=== PATIENT | female | born 1970 | race Hispanic/Latino ===

== ENCOUNTER → 2018-05-13 | Day surgery (SDC) | payer BC ==
[~2018-05-13] MED LIST: ACETAMINOPHEN 1000 MG/100 ML IV ONE; BUPIVACAINE HCL 0.5% INJ 30 ML VIAL INJ ONE; CEFAZOLIN SOD 1 GM/NS 50ML 100 ML IV ONE; DEXAMETHASONE SOD PHOS INJ 4 MG/ML VIAL ONE; FENTANYL CITRATE/PF 100MCG/2 ML INJ ONE; HYDROCHLOROTHIA25 MG PO; KETOROLAC TROMETHAMINE 30 MG/ML VIAL ONE; LIDOCAINE HCL 2% LOCAL INJ 5 ML SDV VIAL INJ ONE; MIDAZOLAM HCL 2 MG/2 ML VIAL ONE; NAPROXEN250 MG PO; ONDANSETRON HCL INJ 2MG/ML 2ML 2 MG/ML VIAL ONE; PANTOPRAZOLE SO40 MG PO; PROPOFOL IV EMULSION 10 MG/ML 20 ML VIAL ONE; PROPRANOLOL HCL40 MG PO; SEVOFLURANE INHAL SOLN 250 ML PEN BTL ONE; VITAMIN B-121000 MCG PO
--- OUTSIDE RECORDS SUMMARY | 2018-05-13 05:28 | XMS REPORT | Continuity of Care Document ---
Author Author [facility] Organization [facility] Address Unknown Phone Unavailable Care Team Providers Care Bead Forming Machine Operator Name Role Phone MD Eusebio, Jeff PP Unavailable Insurance Providers Payer name Policy type / Coverage type Policy ID Covered libertarian ID [place] Encounters Encounter Performer Location Date Lab Report Jeff Kaplan MD [facility] Apr 11, 2013 Problems Problem Effective Dates Problem Status SCREENING FOR LIPOID DISORDERS Apr 11, 2013 Active SCREENING, DIABETES MELLITUS Apr 11, 2013 Active SCREENING, IRON DEFICIENCY ANEMIA Apr 11, 2013 Active [facility] Apr 11, 2013 Active OTHER SCREENING MAMMOGRAM Apr 11, 2013 Active SCREENING FOR MALIGNANT NEOPLASM OF THE CERVIX Apr 11, 2013 Active SCREENING FOR THYROID DISORDER Apr 11, 2013 Active Procedures Date Description Comments Apr 11, 2013 smoking status never smoker Mar 10, 2009 vaginal Pap smear results Normal Vital Signs Date Description Test Result Apr 11, 2013 height E&M - 8302-2 HEIGHT 65 in Apr 11, 2013 weight E&M - 3141-9 WEIGHT 165.31 lb Apr 11, 2013 temperature E&M TEMPERATURE 97.8 deg f Apr 11, 2013 respiratory rate E&M - 9279-1 RESP RATE 18 /min Apr 11, 2013 blood pressure, systolic - 8480-6 BP SYSTOLIC 121 mm Hg Apr 11, 2013 blood pressure, diastolic - 8462-4 BP DIASTOLIC 74 mm Hg Apr 11, 2013 pulse rate E&M - 8867-4 PULSE RATE 69 /min Results Date Description Test Name Value Reference Interpretation Status Apr 11, 2013 hemoglobin, blood HGB 14.5 g/dL 12.0-16.0 Apr 11, 2013 hematocrit, blood HCT 43.9 % 36.0-48.0 Apr 11, 2013 platelet count PLATELETS 163 K/CMM /mm3 133-450 Apr 11, 2013 hemoglobin A1C, blood, as % of total hemoglobin HGBA1C 5.2 % <=5.6 Apr 11, 2013 cholesterol, serum CHOLESTEROL 185 mg/dl <=199 Apr 11, 2013 triglyceride, serum, fasting TRIGLYCERIDE 90 mg/dl <=149 Apr 11, 2013 HDL cholesterol, serum HDL 49 mg/dl >=61 Low Apr 11, 2013 LDL cholesterol, serum LDL 118 mg/dl <=99 High Apr 11, 2013 sodium, serum SODIUM 142 MEQ/L mmol/L 135-145 Apr 11, 2013 potassium, serum POTASSIUM 4.5 MEQ/L mmol/L 3.5-5.1 Apr 11, 2013 creatinine, serum CREATININE 0.9 mg/dL 0.5-1.4 Apr 11, 2013 urea nitrogen, blood BUN 16 mg/dL 7-22 Apr 11, 2013 urea nitrogen/creatinine ratio, serum BUN/CREAT 18 null 6-25 Apr 11, 2013 albumin, serum ALBUMIN 4.2 g/dL 3.5-5.0 Apr 11, 2013 calcium, serum CALCIUM 9.1 mg/dL 8.5-10.5 Apr 11, 2013 alanine aminotransferase (SGPT), serum SGPT (ALT) 22 U/L 0-65 Apr 11, 2013 aspartate aminotransferase (SGOT), serum SGOT (AST) 12 U/L 0-37 Apr 11, 2013 alkaline phosphatase, serum ALK PHOS 64 U/L 39-136 Apr 11, 2013 thyroid stimulating hormone, serum TSH 1.180 uIU/mL 0.360-3.740 Mar 10, 2009 vaginal Pap smear results PAP SMEAR Normal null
--- OUTSIDE RECORDS SUMMARY | 2018-05-13 05:28 | XMS REPORT | Continuity of Care Document ---
Author Author [facility] Organization [facility] Address Unknown Phone Unavailable Care Team Providers Care Licensed Psychologist Name Role Phone MD Ankit, Valerie PP Unavailable Insurance Providers Payer name Policy type / Coverage type Policy ID Covered green party ID [place] Encounters Encounter Performer Location Date Office Visit Valerie Pham MD [facility] May 07, 2013 Problems Problem Effective Dates Problem Status SCREENING FOR LIPOID DISORDERS Apr 11, 2013 Active SCREENING, DIABETES MELLITUS Apr 11, 2013 Active SCREENING, IRON DEFICIENCY ANEMIA Apr 11, 2013 Active [facility] Apr 11, 2013 Active OTHER SCREENING MAMMOGRAM Apr 11, 2013 Active SCREENING FOR MALIGNANT NEOPLASM OF THE CERVIX Apr 11, 2013 Active SCREENING FOR THYROID DISORDER Apr 11, 2013 Active SINUSITIS, ACUTE Apr 26, 2013 Active CARPAL TUNNEL SYNDROME, RIGHT May 07, 2013 Active Procedures Date Description Comments Apr 11, 2013 smoking status never smoker Mar 10, 2009 vaginal Pap smear results Normal Apr 26, 2013 mammogram Completed at [facility] Medications Medication Instructions Start Date Status FLONASE 50 MCG/ACT SUSP 2 sprays per nostril once daily Apr 26, 2013 Inactive NAPROXEN 500 MG TABS Take 1 tab PO BId prn pain Apr 26, 2013 Inactive MUCINEX DM MAXIMUM STRENGTH 60-1200 MG [id number] Take 1 tab PO BID prn Apr 26, 2013 Inactive TRAMADOL HCL 50 MG TABS 1-2 tab by mouth every 6 hours as needed for pain May 07, 2013 Active IBUPROFEN 800 MG TABS 1 tab every 8 hours as needed for pain May 07, 2013 Active Vital Signs Date Description Test Result Apr [...] E&M - 8867-4 PULSE RATE 69 /min Apr 26, 2013 weight E&M - 3141-9 WEIGHT 164 lb Apr 26, 2013 temperature E&M TEMPERATURE 98.3 deg f Apr 26, 2013 respiratory rate E&M - 9279-1 RESP RATE 18 /min Apr 26, 2013 pulse rate E&M - 8867-4 PULSE RATE 83 /min Apr 26, 2013 blood pressure, systolic - 8480-6 BP SYSTOLIC 128 mm Hg Apr 26, 2013 blood pressure, diastolic - 8462-4 BP DIASTOLIC 70 mm Hg May 07, 2013 weight E&M - 3141-9 WEIGHT 167 lb May 07, 2013 temperature E&M TEMPERATURE 98.1 deg f May 07, 2013 respiratory rate E&M - 9279-1 RESP RATE 16 /min May 07, 2013 pulse rate E&M - 8867-4 PULSE RATE 68 /min May 07, 2013 blood pressure, systolic - 8480-6 BP SYSTOLIC 136 mm Hg May 07, 2013 blood pressure, diastolic - 8462-4 BP DIASTOLIC 82 mm Hg Results Date Description Test Name Value Reference [...]
--- OUTSIDE RECORDS SUMMARY | 2018-05-13 05:28 | XMS REPORT | Continuity of Care Document ---
Author Author [facility] Organization [facility] Address Unknown Phone Unavailable Care Team Providers Care Radio Host Name Role Phone MD Ankit, Valerie PP Unavailable Insurance Providers Payer name Policy type / Coverage type Policy ID Covered democrat ID [place] Encounters Encounter Performer Location Date Office Visit Valerie hPam MD [facility] May 25, 2014 Problems Problem Effective Dates Problem Status SCREENING [...] TUNNEL SYNDROME, RIGHT May 07, 2013 Active ESSENTIAL TREMOR May 25, 2014 Active Procedures Date Description Comments Apr 11, 2013 smoking status never smoker Mar 10, 2009 vaginal Pap smear results Normal Apr 26, 2013 mammogram Completed at [facility] May 25, 2014 smoking status Never smoker Medications Medication Instructions Start Date Status FLONASE 50 MCG/ACT SUSP 2 sprays per nostril once daily Apr 26, 2013 Inactive NAPROXEN 500 MG TABS Take 1 tab PO BId prn pain Apr 26, 2013 Inactive MUCINEX DM MAXIMUM STRENGTH 60-1200 MG [id number] Take 1 tab PO BID prn Apr 26, 2013 Inactive IBUPROFEN 800 MG TABS 1 tab every 8 hours as needed for pain May 07, 2013 Active TRAMADOL HCL 50 MG TABS 1-2 tab by mouth every 6 hours as needed for pain May 07, 2013 Inactive Vital Signs Date Description Test Result Apr [...] - 8462-4 BP DIASTOLIC 82 mm Hg May 25, 2014 height E&M - 8302-2 HEIGHT 65 in May 25, 2014 weight E&M - 3141-9 WEIGHT 161.19 lb May 25, 2014 pulse rate E&M - 8867-4 PULSE RATE 67 /min May 25, 2014 blood pressure, systolic - 8480-6 BP SYSTOLIC 125 mm Hg May 25, 2014 blood pressure, diastolic - 8462-4 BP DIASTOLIC 63 mm Hg May 25, 2014 respiratory rate E&M - 9279-1 RESP RATE 16 /min May 25, 2014 temperature E&M TEMPERATURE 97.5 deg f Results Date Description Test Name Value Reference [...]
--- OUTSIDE RECORDS SUMMARY | 2018-05-13 05:28 | XMS REPORT | Summary of Care ---
Author Author [facility] Address Unknown Phone Unavailable Encounter FIN [facility] [id number] Date(s): 02/28/17 - 02/28/17 [facility] [address] [place], [place] [address] Discharge Disposition: Discharged to Home or Self Care Attending Physician: Mayela Woodward Admitting Physician: Mayela Woodward Vital Signs No data available for this section Problem List No data available for this section Allergies, Adverse Reactions, Alerts No data available for this section Medications No data available for this section Results No data available for this section Immunizations No data available for this section Procedures No data available for this section Social History No data available for this section Assessment and Plan No data available for this section
--- OUTSIDE RECORDS SUMMARY | 2018-05-13 05:28 | XMS REPORT | Continuity of Care Document ---
Author Author [facility] Organization [facility] Address Unknown Phone Unavailable Care Team Providers Care Bush Hog Operator Name Role Phone MD Eusebio, Jeff PP Unavailable Insurance Providers Payer name Policy type / Coverage type Policy ID Covered constitution party ID [place] Encounters Encounter Performer Location Date Office Visit Jeff Kaplan MD [facility] Apr 26, 2013 Problems Problem Effective Dates Problem Status [...] Active SINUSITIS, ACUTE Apr 26, 2013 Active Procedures Date Description Comments Apr 11, 2013 smoking status never smoker Mar 10, 2009 vaginal Pap smear results Normal Apr 26, 2013 mammogram Completed at [facility] Medications Medication Instructions Start Date Status FLONASE 50 MCG/ACT SUSP 2 sprays per nostril once daily Apr 26, 2013 Active NAPROXEN 500 MG TABS Take 1 tab PO BId prn pain Apr 26, 2013 Inactive MUCINEX DM MAXIMUM STRENGTH 60-1200 MG [id number] Take 1 tab PO BID prn Apr 26, 2013 Inactive Vital Signs Date Description Test [...] - 8462-4 BP DIASTOLIC 70 mm Hg Results Date Description Test Name [...]
--- OUTSIDE RECORDS SUMMARY | 2018-05-13 05:28 | XMS REPORT | Continuity of Care Document ---
Author Author [facility] Address Unknown Phone Unavailable Problems Problem Status Onset Date Classification Date Reported Comments Source ESSENTIAL TREMOR Active 05/25/2014 Condition 05/25/2014 [facility] CARPAL TUNNEL SYNDROME, RIGHT Active 05/07/2013 Condition 05/25/2014 [facility] SINUSITIS, ACUTE Active 04/26/2013 Condition 05/25/2014 [facility] SCREENING FOR LIPOID DISORDERS Active 04/11/2013 Condition 05/25/2014 [facility] SCREENING, DIABETES MELLITUS Active 04/11/2013 Condition 05/25/2014 [facility] SCREENING, IRON DEFICIENCY ANEMIA Active 04/11/2013 Condition 05/25/2014 [facility] PREVENTIVE HEALTH CARE Active 04/11/2013 Condition 05/25/2014 [facility] OTHER SCREENING MAMMOGRAM Active 04/11/2013 Condition 05/25/2014 [facility] SCREENING FOR MALIGNANT NEOPLASM OF THE CERVIX Active 04/11/2013 Condition 05/25/2014 [facility] SCREENING FOR THYROID DISORDER Active 04/11/2013 Condition 05/25/2014 [facility] Medications Medication Details Route Status Patient Instructions Ordering Provider Order Date Source IBUPROFEN 800 MG TABS 1 tab every 8 hours as needed for pain Active 05/07/2013 [facility] TRAMADOL HCL 50 MG TABS 1-2 tab by mouth every 6 hours as needed for pain No Longer Active 05/07/2013 [facility] TRAMADOL HCL 50 MG TABS 1-2 tab by mouth every 6 hours as needed for pain Active 05/07/2013 [facility] IBUPROFEN 800 MG TABS 1 tab every 8 hours as needed for pain Active 05/07/2013 [facility] FLONASE 50 MCG/ACT SUSP 2 sprays per nostril once daily No Longer Active 04/26/2013 [facility] NAPROXEN 500 MG TABS Take 1 tab PO BId prn pain No Longer Active 04/26/2013 [facility] MUCINEX DM MAXIMUM STRENGTH 60-1200 MG [id number] Take 1 tab PO BID prn No Longer Active 04/26/2013 [facility] FLONASE 50 MCG/ACT SUSP 2 sprays per nostril once daily No Longer Active 04/26/2013 [facility] Allergies, Adverse Reactions, Alerts Substance Category Reaction Severity Reaction type Status Date Reported Comments Source Immunizations Immunization Date Given Site Status Last Updated Comments Source Results Order Name Results Value Reference Range Date Interpretation Comments Source Chemistry HGBA1C 5.2 % - 5.6 04/11/2013 [facility] Chemistry CHOLESTEROL 185 mg/dl - 199 04/11/2013 [facility] Chemistry TRIGLYCERIDE 90 mg/dl - 149 04/11/2013 [facility] Chemistry HDL 49 mg/dl >=61 04/11/2013 [facility] Chemistry LDL 118 mg/dl - 99 04/11/2013 [facility] Chemistry SODIUM 142 MEQ/L mmol/L 135 - 145 04/11/2013 [facility] Chemistry POTASSIUM 4.5 MEQ/L mmol/L 3.5 - 5.1 04/11/2013 [facility] Chemistry CREATININE 0.9 mg/dL 0.5 - 1.4 04/11/2013 [facility] Chemistry BUN 16 mg/dL 7 - 22 04/11/2013 [facility] Chemistry BUN/CREAT 18 6 - 25 04/11/2013 [facility] Chemistry ALBUMIN 4.2 g/dL 3.5 - 5.0 04/11/2013 [facility] Chemistry CALCIUM 9.1 mg/dL 8.5 - 10.5 04/11/2013 [facility] Chemistry SGPT (ALT) 22 U/L 0 - 65 04/11/2013 [facility] Chemistry SGOT (AST) 12 U/L 0 - 37 04/11/2013 [facility] Chemistry ALK PHOS 64 U/L 39 - 136 04/11/2013 [facility] Chemistry TSH 1.180 uIU/mL 0.360 - 3.740 04/11/2013 [facility] Hematology HGB 14.5 g/dL 12.0 - 16.0 04/11/2013 [facility] Hematology HCT 43.9 % 36.0 - 48.0 04/11/2013 [facility] Hematology PLATELETS 163 K/CMM /mm3 133 - 450 04/11/2013 [facility] Lithographic Photographer PAP SMEAR Normal 03/10/2009 [facility] Vital Signs Vital Sign Value Date Comments Source Height 65 05/25/2014 [facility] Weight 161.19 05/25/2014 [facility] Heart Rate 67 05/25/2014 [facility] Systolic (mm Hg) 125 05/25/2014 [facility] Diastolic (mm Hg) 63 05/25/2014 [facility] Respitory Rate 16 05/25/2014 [facility] Temperature Oral (F) 97.5 F 05/25/2014 [facility] Weight 167 05/08/2013 [facility] Temperature Oral (F) 98.1 F 05/08/2013 [facility] Respitory Rate 16 05/08/2013 [facility] Heart Rate 68 05/08/2013 [facility] Systolic (mm Hg) 136 05/08/2013 [facility] Diastolic (mm Hg) 82 05/08/2013 [facility] Weight 164 04/26/2013 [facility] Temperature Oral (F) 98.3 F 04/26/2013 [facility] Respitory Rate 18 04/26/2013 [facility] Heart Rate 83 04/26/2013 [facility] Systolic (mm Hg) 128 04/26/2013 [facility] Diastolic (mm Hg) 70 04/26/2013 [facility] Height 65 04/11/2013 [facility] Weight 165.31 04/11/2013 [facility] Temperature Oral (F) 97.8 F 04/11/2013 [facility] Respitory Rate 18 04/11/2013 [facility] Systolic (mm Hg) 121 04/11/2013 [facility] Diastolic (mm Hg) 74 04/11/2013 [facility] Heart Rate 69 04/11/2013 [facility] Encounters Location Location Details Encounter Type Encounter Number Reason For Visit Attending Provider ADM Date DC Date Status Source [facility] Lab Report [id number] Jeff Kaplan MD 04/11/2013 04/11/2013 [facility] Office Visit [id number] Jeff Kaplan MD 04/26/2013 04/26/2013 Medical [facility] Office Visit [id number] Valerie Pham MD 05/07/2013 05/07/2013 Medical [facility] Office Visit [id number] Valerie Pham MD 05/25/2014 05/25/2014 Medical Group [facility] Outpatient [id number] TINNITUS Mayela Sawyer 02/28/2017 02/28/2017 Active [facility] Outpatient [id number] Mayela Sawyer 02/28/2017 03/01/2017 [facility] Outpatient [id number] [facility] Mayela Sawyer 03/01/2017 Active [facility] Outpatient [id number] Mayela Sawyer 03/01/2017 03/02/2017 [facility] Procedures Procedure Code Date Perfomer Comments Source mammogram [id number] 04/26/2013 Completed at [facility] vaginal Pap smear results [id number] 03/10/2009 Normal [facility]
--- OUTSIDE RECORDS SUMMARY | 2018-05-13 05:28 | XMS REPORT | Summary of Care ---
Author Author [facility] Address Unknown Phone Unavailable Encounter FIN [facility] [id number] Date(s): 03/01/17 - 03/01/17 [facility] [address], [place] [address] Discharge Disposition: Discharged to Home or [...]
[2018-05-13 09:05] VITALS: BP 109/71
--- NOTE | 2018-05-13 17:00 | Operative Report ---
DATE OF PROCEDURE: 05/13/2018 SURGEON: Carlos Caballero MD PREOPERATIVE DIAGNOSIS: Right carpal tunnel syndrome. POSTOPERATIVE DIAGNOSIS: Right carpal tunnel syndrome. OPERATION/PROCEDURE PERFORMED: The patient underwent an open right carpal tunnel release. ESTHETIC DERMATOLOGIST: There was no claims assistant. ANESTHESIA: General endotracheal intubation anesthesia. IV FLUIDS: Per the Anesthesia record. BRIEF DISCUSSION OF THE PATIENT'S OPERATIVE PROCEDURE: Ms. Hayden was taken to the operating room, placed in the supine position on the operating table. Following the induction of general anesthesia as well as endotracheal intubation, the patient's right upper extremity was examined under anesthesia. She was found to have a normal appearing hand. The patient's right upper extremity was prepped and draped in standard surgical fashion. An incision was created in the palm of the hand along the thenar-palmar crease. This incision was carried through the skin only. Blunt dissection was used to deepen the incision to the level of transverse carpal ligament. The transverse carpal ligament was incised in line with the skin incision. The floor of the carpal canal was evaluated and found to have no abnormalities. The wound was irrigated. The tourniquet was deflated and hemostasis was obtained. The wound was closed in a single layer fashion. Sterile dressings were applied and the patient was awakened and taken to the Postanesthesia Care Unit in stable condition. MD GIUSEPPE JassoR/MODL /[id number]
== END | disposition home or self-care (01) ==
LOC: OR 05:25
PROVIDERS: ATTEND Specialist
DX: G56.01 Carpal tunnel syndrome, right upper limb (principal); S39.012A Strain of muscle, fascia and tendon of lower back, initial encounter; M77.11 Lateral epicondylitis, right elbow; I10 Essential (primary) hypertension; E21.3 Hyperparathyroidism, unspecified
CPT/HCPCS: 64721; 81025; J0131; J0690; J1100; J1885; J2001; J2250; J2405; J2704